=== PATIENT | female | born 1950 | race Caucasian/White ===

== ENCOUNTER 2019-01-22 05:26 | Day surgery (SDC) | payer MEDICARE, MEDICAID ==
[~2019-01-22] VITALS: Ht 149.9 cm; Wt 93.4 kg
[2019-01-22] MEDS ORDERED: LACTATED RINGERS 1,000 ML IV SCH (06:20)
[2019-01-22] MEDS ORDERED: SKIN ADHESIVE 0.7 GM EA TOP ONE (06:43)
[2019-01-22] MEDS ORDERED: LIDOCAINE HCL 1% 20ML VIAL (Pyxis) INJ ONE (06:44)
[2019-01-22] MEDS ORDERED: BUPIVACAINE HCL/PF 0.5% (5MG/ML) 10ML ONE (06:44)
[2019-01-22] MEDS ORDERED: BACITRACIN 50,000 UNITS/VIAL ONE (06:44)
[2019-01-22] MEDS ORDERED: ROCURONIUM BROMIDE 10MG/ML VIAL 5ML IV ONE (07:43)
[2019-01-22] MEDS ORDERED: FENTANYL CITRATE/PF 50MCG/ML 2ML VIAL ONE ×2 (07:43→08:12)
[2019-01-22] MEDS ORDERED: LIDOCAINE HCL/PF 1% 10 MG/ML 5ML VIAL ONE (07:44)
[2019-01-22] MEDS ORDERED: PROPOFOL 200MG/20ML VIAL IV ONE (07:44)
[2019-01-22] MEDS ORDERED: SODIUM CHLORIDE 0.9% 10ML VIAL ONE (07:44)
[2019-01-22] MEDS ORDERED: SUCCINYLCHOLINE CHLORIDE 200MG/10ML IV ONE (07:44)
[2019-01-22] MEDS ORDERED: EPHEDRINE SULFATE 50MG/ML VIAL ONE (07:44)
[2019-01-22] MEDS ORDERED: METOCLOPRAMIDE HCL 10MG/2ML VIAL ONE (07:44)
[2019-01-22] MEDS ORDERED: NEOSTIGMINE METHYLSULFATE 1MG/ML 10 ML VIAL ONE (07:44)
[2019-01-22] MEDS ORDERED: PHENYLEPHRINE HCL 10 MG/ML 1ML (IV VIAL) IV ONE (07:44)
[2019-01-22] MEDS ORDERED: MIDAZOLAM HCL 2 MG/2 ML VIAL ONE (07:44)
[2019-01-22] MEDS ORDERED: CEFAZOLIN SODIUM 1000MG/VIAL ONE (07:44)
[2019-01-22] MEDS ORDERED: GLYCOPYRROLATE 0.2 MG/ML 2ML VIAL ONE (07:44)
[2019-01-22] MEDS ORDERED: ONDANSETRON HCL 4MG/2ML INJ ONE (07:44)
[2019-01-22] MEDS ORDERED: AMLO10TA80 PO (08:03)
[2019-01-22] MEDS ORDERED: VALS80TA30 PO (08:03)
[2019-01-22] MEDS ORDERED: ALBU18HF2 IH (08:03)
[2019-01-22] MEDS ORDERED: KETOROLAC 30MG/ML VIAL IV NR (09:15)
[2019-01-22] MEDS ORDERED: SODIUM CHLORIDE 0.9% 1,000 ML IV ONE (09:18)
[2019-01-22] MEDS ORDERED: ONDANSETRON HCL 4MG/2ML INJ IV PRN (09:30)
[2019-01-22] MEDS ORDERED: HYDROMORPHONE HCL/PF 2MG/ML CPJ IV PRN (09:30)
[2019-01-22] MEDS ORDERED: MORPHINE SULFATE 2 MG/ML CPJ (NOT FOR IM USE) IV PRN (09:30)
[2019-01-22] MEDS ORDERED: ALBUTEROL (0.083%) 2.5MG/3ML NEB HHN ONE (09:30)
[2019-01-22] MEDS ORDERED: MEPERIDINE HCL/PF 25MG/ML CPJ IV PRN ×2 (09:30)
[2019-01-22] MEDS ORDERED: IPRATROPIUM/ALBUTEROL 0.5-3(2.5)MG/3ML NEB ONE (09:38)
[2019-01-22] MEDS ORDERED: IPRATROPIUM/ALBUTEROL 0.5-3(2.5)MG/3ML NEB HHN NR (09:45)
[2019-01-22 10:55] VITALS: BP 125/63
== END 2019-01-22 11:35 | disposition home or self-care (01) ==
LOC: OR 05:26
PROVIDERS: ATTEND Specialist
DX: K43.6 Other and unspecified ventral hernia with obstruction, without gangrene (principal); J45.909 Unspecified asthma, uncomplicated; I10 Essential (primary) hypertension; E66.9 Obesity, unspecified; Z68.41 Body mass index [BMI] 40.0-44.9, adult; Z98.51 Tubal ligation status
CPT/HCPCS: 49561; 49568; 88302; 88305; 94640; C1781; J0330; J0690; J1885; J2250; J2370; J2405; J2704; J2710; J2765; J3010; J3490; J7620